=== PATIENT | female | born 1960 ===

== ENCOUNTER 2018-09-02 14:48 | Observation (INO) | payer OTHER ==
[2018-09-02 15:04] VITALS: BMI 49.8
[2018-09-02] MEDS ORDERED: Albuterol-Ipratrop 3 mg / 0.5 (3 ml) UD IH STA ×3 (15:26→16:48)
--- NOTE | 2018-09-02 15:35 | ED PDOC ---
Arrival/HPI - General Chief Complaint: Cough, Cold, Congestion Historian: Patient - History of Present Illness Narrative History of Present Illness (Text): 09/02/18 15:30 57 year old Jamaican-speaking female, whose past medical history includes diabetes, hypertension, and hypothyroidism, presents to the emergency department complaining of productive cough with phlegm, subjective fever, headache, and dizziness for the past couple of days. Patient also reports slight shortness of breath when walking. Patient denies any recent travel or taking any medication for cough. She denies any history of asthma or COPD. Patient denies any fever, chills, chest pain, nausea, vomiting, diarrhea, urinary symptoms, back pain, neck pain, or any other complaints. Time/Duration: Other (couple days) Symptom Onset: Gradual Symptom Course: Unchanged Activities at Onset: Light Context: Home Past Medical History - Provider Review Nursing Documentation Reviewed: Yes - Infectious Disease Hx of Infectious Diseases: None - Cardiac Hx Hypertension: Yes - Pulmonary Hx Bronchitis: Yes Hx Pneumonia: Yes - Endocrine/Metabolic Hx Diabetes Mellitus Type 2: Yes Hx Hypothyroidism: Yes - Psychiatric Hx Substance Use: No - Surgical History Other/Comment: L foot surgery. Stomach surgery x 3 - Anesthesia Hx Anesthesia: Yes Hx Anesthesia Reactions: No Hx Malignant Hyperthermia: No Family/Social History - Physician Review Nursing Documentation Reviewed: Yes Family/Social History: No Known Family HX Smoking Status: Never Smoked Hx Alcohol Use: No Hx Substance Use: No Allergies/Home Meds Allergies/Adverse Reactions: Allergies No Known Allergies Allergy (Verified 09/02/18 20:32) Home Medications: Home Meds Medication Instructions Recorded Confirmed Labetalol [Trandate] 1 tab PO TID 09/02/18 09/02/18 Levothyroxine [Synthroid] 1 tab PO DAILY 09/02/18 09/02/18 hydroCHLOROthiazide [Microzide] 1 tab PO DAILY 09/02/18 09/02/18 metFORMIN [glucOPHAGE] 1 tab PO BID 09/02/18 09/02/18 Review of Systems - Physician Review All systems were reviewed & negative as marked: Yes - Review of Systems Constitutional: Fevers. absent: Other (chills) Respiratory: SOB, Cough Cardiovascular: absent: Chest Pain Gastrointestinal: absent: Abdominal Pain, Diarrhea, Nausea, Vomiting Genitourinary Female: absent: Dysuria, Frequency, Hematuria Musculoskeletal: absent: Back Pain, Neck Pain Neurological: absent: Headache, Dizziness Physical Exam Vital Signs Reviewed: Yes Vital Signs Temp Pulse Resp BP Pulse Ox 09/02/18 15:23 95 09/02/18 15:09 97.6 F 91 H 18 135/94 H 88 L Temperature: Afebrile Blood Pressure: Hypertensive Pulse: Regular Respiratory Rate: Normal Appearance: Positive for: Well-Appearing, Non-Toxic, Comfortable Pain Distress: None Mental Status: Positive for: Alert and Oriented X 3 - Systems Exam Head: Present: Atraumatic, Normocephalic Pupils: Present: PERRL Extroacular Muscles: Present: EOMI Conjunctiva: Present: Normal Mouth: Present: Moist Mucous Membranes Neck: Present: Normal Range of Motion Respiratory/Chest: Present: Rhonchi (bilateral). No: Respiratory Distress, Accessory Muscle Use Cardiovascular: Present: Regular Rate and Rhythm, Normal S1, S2. No: Murmurs Abdomen: No: Tenderness, Distention, Peritoneal Signs Back: Present: Normal Inspection Upper Extremity: Present: Normal Inspection. No: Cyanosis, Edema Lower Extremity: Present: Normal Inspection. No: Edema Neurological: Present: GCS=15, CN II-XII Intact, Speech Normal Skin: Present: Warm, Dry, Normal Color. No: Rashes Psychiatric: Present: Alert, Oriented x 3, Normal Insight, Normal Concentration Medical Decision Making ED Course and Treatment: 09/02/18 15:30 Impression: 57 year old female presents complaining of productive cough with yellow phlegm, subjective fever, dizziness, headache for the past couple days. Patient also reports shortness of breath with exertion. Plan: -- Labs -- EKG -- Chest X-Ray -- Duoneb -- Blood Culture -- Influenza A B -- Reassess and disposition Prior Visits: Notes and results from previous visits were reviewed. Progress Notes: EKG shows Sinus at 87 BPM with normal axis and normal intervals. Interpreted by me. Chest X-ray Dictator : Eulogio Randhawa MD IMPRESSION: No active disease. Patient is influenza A positive. 09/02/18 18:[address] Newman who is aware and agrees with the plan. Accepts patient into hospitalist service. - Lab Interpretations I have reviewed the lab results: Yes - RAD Interpretation Radiology Orders: 09/02/18 15:26 CHEST PORTABLE [RAD] Stat Supervisor [employer]: Radiologist - Medication Orders Current Medication Orders: Discontinued Medications Albuterol/Ipratropium (Duoneb 3 Mg/0.5 Mg (3 Ml) Ud) 3 ml IH STAT STA Stop: 09/02/18 15:27 - Scribe Statement The provider has reviewed the documentation as recorded by the Deannaibe Simran Carter Provider Scribe Attestation: All medical record entries made by the Scribe were at my direction and personally dictated by me. I have reviewed the chart and agree that the record accurately reflects my personal performance of the history, physical exam, medical decision making, and the department course for this patient. I have also personally directed, reviewed, and agree with the discharge instructions and disposition. Disposition/Present on Arrival - Present on Arrival Any Indicators Present on Arrival: No History of DVT/PE: No History of Uncontrolled Diabetes: No Urinary Catheter: No History of Decub. Ulcer: No History Surgical Site Infection Following: None - Disposition Have Diagnosis and Disposition been Completed?: Yes Diagnosis: Bronchitis Disposition: HOME/ ROUTINE Disposition Time: 18:20 Condition: GOOD
--- NOTE | 2018-09-02 15:58 | RAD ---
Date of service: 09/02/2018 HISTORY: cough r/o infiltrate COMPARISON: No prior. FINDINGS: LUNGS: No active pulmonary disease. PLEURA: No significant pleural effusion identified, no pneumothorax apparent. CARDIOVASCULAR: No aortic atherosclerotic calcification present. Normal cardiac size. No pulmonary vascular congestion. OSSEOUS STRUCTURES: No significant abnormalities. VISUALIZED UPPER ABDOMEN: Normal. OTHER FINDINGS: None. IMPRESSION: No active disease.
[2018-09-02 16:27] LABS: BASO # 0.01 K/mm3 (0.0-2.0); BASO % 0.2 % (0.0-3.0); EOS % 0.2 % (1.5-5.0); HEMOGLOBIN 14.9 g/dL (12.0-16.0); LYMPH # 1.3 (1.2-3.4); LYMPH % 22.6 % (22.0-35.0); MEAN CELL VOLUME 78.8 fl (80.0-105.0); MEAN CORPUSCULAR HEMOGLOBIN 25.1 pg (25.0-35.0); MEAN CORPUSCULAR HGB CONC 31.8 g/dl (31.0-37.0); MEAN PLATELET VOLUME 10.7 fl (7.0-11.0); MONO # 0.8 (0.1-0.6); MONO % 13.8 % (1.0-6.0); RBC 5.94 10^6/uL (3.5-6.1); RED CELL DISTRIBUTION WIDTH 15.5 % (11.5-14.5); WHITE BLOOD COUNT 5.7 10^3/uL (4.5-11.0)
[2018-09-02 16:53] LABS: ALB/GLOB RATIO 1.3 (1.1-1.8); ALBUMIN 4.6 g/dL (3.0-4.8); ALT/SGPT 85 U/L (7-56); AST/SGOT 83 U/L (14-36); B-TYPE NATRIURETIC PEPTIDE 41.8 pg/mL (0-450); BLOOD UREA NITROGEN 34 mg/dL (7-21); CALCIUM 10.1 mg/dL (8.4-10.5); GFR NON-AFRICAN AMERICAN 42; TROPONIN I < 0.01 ng/mL
[2018-09-02] MEDS ORDERED: Insulin Regular 1 UNITS/0.01 ML ML IVP STA (16:58)
[2018-09-02] MEDS ORDERED: Sodium Chloride 0.9% 1,000 ML IV STA ×2 (16:58→18:42)
[2018-09-02 17:08] LABS: CK-MB 1.5 ng/mL (0.0-3.6)
[2018-09-02 17:11] LABS: T3 0.65 ng/mL (0.97-1.69)
[2018-09-02] MEDS ORDERED: Sodium Chloride 0.9% 1,000 ML IV ONE (18:38)
[2018-09-02 18:42] LABS: ARTERIAL BLOOD GAS HCO3 29.6 mmol/L (21-28); ARTERIAL BLOOD GAS O2 SAT 87.1 % (95-98); ARTERIAL BLOOD GAS PCO2 50 mm/Hg (35-45); ARTERIAL BLOOD GAS PH 7.38 (7.35-7.45); ARTERIAL BLOOD GAS TCO2 31.1 mmol.L (22-28)
--- NOTE | 2018-09-02 19:05 | CP.PCM.HP ---
<Eleno Duncan - Last Filed: 09/02/18 19:59> History of Present Illness - History of Present Illness History of Present Illness: PGY-1 Medicine H&P CC: Hyperglycemia and flu-like symptoms HPI: Patient is a 57 year old Burmese-speaking female with a past medical history of DM-2, HTN, and hypothyroidism presenting with generalized weakness, nausea, and fevers. Patient's 2 daughters were at bedside and translated. Patient states that she started having these symptoms about a week ago but decided to come to the ED today because of worsening symptoms. She admits to feeling nauseated but denies vomiting. Patient is also complaining of a productive cough that started last week. She describes the cough to be productive with yellow sputum. She also admits to having fevers and chills at home. Patient denies any recent travel or sick contacts. Patient was diagnosed with diabetes 2 months ago and was prescribed Metformin. She states that she has no been taking the Metformin regularly due to the side effects of nausea and upset stomach. She states that she had lost about 30 pounds ever since she started taking it. She admits to having shortness of breath especially when she is coughing. She further denies chest pain, abdominal pain, diarrhea, constipation, or urinary symptoms. In ED, glucose was 714. 12 point ROS reviewed and negative except mentioned in HPI. PMHx: DM-2, HTN, Hypothyroidism PSHx: Hernia surgery X 3 Allergies: NKDA Social Hx: Denies tobacco, alcohol, or drug use. Family Hx: Mother has HTN, maternal grandmother had HTN and heart disease. PMD: Carlos GARZA, [facility]: [facility] in [place] Present on Admission - Present on Admission Any Indicators Present on Admission: Yes History of DVT/PE: No History of Uncontrolled Diabetes: Yes Urinary Catheter: No Decubitus Ulcer Present: No Past Patient History - Infectious Disease Hx of Infectious Diseases: None - Past Social History Smoking Status: Never Smoked - CARDIAC Hx Hypertension: Yes - PULMONARY Hx Bronchitis: Yes Hx Pneumonia: Yes - ENDOCRINE/METABOLIC Hx Diabetes Mellitus Type 2: Yes Hx Hypothyroidism: Yes - PSYCHIATRIC Hx Substance Use: No - SURGICAL HISTORY Other/Comment: L foot surgery. Stomach surgery x 3 - ANESTHESIA Hx Anesthesia: Yes Hx Anesthesia Reactions: No Hx Malignant Hyperthermia: No Meds Allergies/Adverse Reactions: Allergies Allergy/AdvReac Type Severity Reaction Status Date / Time No Known Allergies Allergy Verified 09/02/18 20:32 Physical Exam - Constitutional Appears: No Acute Distress Additional comments: Appears uncomfortable and lethargic - Head Exam Head Exam: ATRAUMATIC, NORMAL INSPECTION - Eye Exam Eye Exam: EOMI, Normal appearance Pupil Exam: NORMAL ACCOMODATION, PERRL - ENT Exam ENT Exam: Mucous Membranes Dry - Neck Exam Neck exam: Negative for: Tenderness - Respiratory Exam Respiratory Exam: Rhonchi - Cardiovascular Exam Cardiovascular Exam: REGULAR RHYTHM, +S1, +S2. absent: Gallop, Rubs, Systolic Murmur - GI/Abdominal Exam GI & Abdominal Exam: Normal Bowel Sounds, Soft. absent: Distended, Firm, Guarding, Tenderness - Extremities Exam Extremities exam: Negative for: calf tenderness, pedal edema - Neurological Exam Neurological exam: Alert, CN II-XII Intact, Oriented x3 - Psychiatric Exam Psychiatric exam: Normal Affect, Normal Mood - Skin Skin Exam: Dry, Intact, Normal Color, Warm Results - Vital Signs Recent Vital Signs: Last Vital Signs Temp 97.6 F 09/02/18 15:09 Pulse 86 09/02/18 18:24 Resp 18 09/02/18 18:24 BP 150/66 09/02/18 18:24 Pulse Ox 95 09/02/18 18:24 - Labs Result Diagrams: 09/02/18 15:50 09/02/18 15:50 Labs: Laboratory Results - last 24 hr 09/02/18 09/02/18 09/02/18 15:50 15:50 15:50 WBC 5.7 RBC 5.94 Hgb 14.9 Hct 46.8 MCV 78.8 L MCH 25.1 MCHC 31.8 RDW 15.5 H Plt Count 160 MPV 10.7 Neut % (Auto) 63.2 Lymph % (Auto) 22.6 [place] % (Auto) 13.8 H Eos % (Auto) 0.2 L Baso % (Auto) 0.2 Lymph # (Auto) 1.3 [place] # (Auto) 0.8 H Eos # (Auto) 0.0 Baso # (Auto) 0.01 Absolute Neuts (auto) 3.63 pCO2 pO2 HCO3 ABG pH ABG Total CO2 ABG O2 Saturation ABG Base Excess ABG Potassium Glucose Lactate FiO2 Crit Value Called To Crit Value Called By Blood Gas Notified Time Sodium 130 L Potassium 4.2 Chloride 83 L Carbon Dioxide 35 H Anion Gap 17 BUN 34 H Creatinine 1.3 H Est GFR ( Amer) 51 Est GFR (Non-Af Amer) 42 Random Glucose 714 H* Calcium 10.1 Magnesium 2.1 Total Bilirubin 0.5 AST 83 H ALT 85 H Alkaline Phosphatase 115 Lactate Dehydrogenase 660 Total Creatine Kinase 262 H CK-MB (CK-2) 1.5 CK-MB (CK-2) % Cancelled Troponin I < 0.01 NT-Pro-B Natriuret Pep 41.8 Total Protein 8.3 Albumin 4.6 Globulin 3.6 Albumin/Globulin Ratio 1.3 Total T3 TSH 3rd Generation Arterial Blood Potassium Influenza Typ A,B (EIA) Pos for influenza a H 09/02/18 09/02/18 15:50 18:35 WBC RBC Hgb Hct MCV MCH MCHC RDW Plt Count MPV Neut % (Auto) Lymph % (Auto) [place] % (Auto) Eos % (Auto) Baso % (Auto) Lymph # (Auto) [place] # (Auto) Eos # (Auto) Baso # (Auto) Absolute Neuts (auto) pCO2 50 H pO2 48.0 L HCO3 29.6 H ABG pH 7.38 ABG Total CO2 31.1 H ABG O2 Saturation 87.1 L ABG Base Excess 3.4 H ABG Potassium 3.6 Glucose 599 H* Lactate 1.7 FiO2 21.0 Crit Value Called To Dr whaley Crit Value Called By Ct Blood Gas Notified Time 1841 Sodium 132.0 Potassium Chloride 91.0 L Carbon Dioxide Anion Gap BUN Creatinine Est GFR ( Amer) Est GFR (Non-Af Amer) Random Glucose Calcium Magnesium Total Bilirubin AST ALT Alkaline Phosphatase Lactate Dehydrogenase Total Creatine Kinase CK-MB (CK-2) CK-MB (CK-2) % Troponin I NT-Pro-B Natriuret Pep Total Protein Albumin Globulin Albumin/Globulin Ratio Total T3 0.65 L TSH 3rd Generation 5.91 H Arterial Blood Potassium 3.6 Influenza Typ A,B (EIA) Assessment & Plan - Assessment and Plan (Free Text) Assessment: Patient is a 57 year old Burmese-speaking female with a past medical history of DM-2, HTN, and hypothyroidism presenting with generalized weakness, nausea, and fevers. Glucose was 714 on admission. Plan: Hyperosmolar Hyperglycemic Syndrome - Admit patient to remote telemetry for regular accuchecks - Insulin Lispro High dose SC Q4H - Levemir 10 units SC HS - Endocrinology consulted, Dr. Panchal - NS @ 150 mls/hr - Got 2 X boluses in ED - Accuchecks Q2H - Zofran 4mg IV Q4 PRN - Hemoglobin A1c, Lipid panel: pending - Diabetic education referral Infuenza - Tamiflu 75mg PO BID for 5 days - Tylenol PRN for fevers - Blood, urine cultures: pending - Procalcitonin: pending Shortness of breath - Duonebs Q6 [place] and Q2 PRN - Acetylcysteine Q6 - CPAP HS Hypothyroidism - Continue home medication, Levothyroxine 25mg PO QD HTN - Hold home medications, HTZ and Labetolol Prophylaxis - DVT: Lovenox 40mg SC QD Case discussed with attending, Dr. Hannah Duncan, PGY-1 <Franky Young - Last Filed: 09/02/18 22:02> Results - Vital Signs Recent Vital Signs: Last Vital Signs Temp 97.6 F 09/02/18 15:09 Pulse 86 09/02/18 18:24 Resp 18 09/02/18 21:26 BP 150/66 09/02/18 18:24 Pulse Ox 95 09/02/18 18:24 - Labs Result Diagrams: 09/02/18 15:50 09/02/18 20:54 Labs: Laboratory Results - last 24 hr 09/02/18 09/02/18 09/02/18 15:50 15:50 15:50 WBC 5.7 RBC 5.94 Hgb 14.9 Hct 46.8 MCV 78.8 L MCH 25.1 MCHC 31.8 RDW 15.5 H Plt Count 160 MPV 10.7 Neut % (Auto) 63.2 Lymph % (Auto) 22.6 [place] % (Auto) 13.8 H Eos % (Auto) 0.2 L Baso % (Auto) 0.2 Lymph # (Auto) 1.3 [place] # (Auto) 0.8 H Eos # (Auto) 0.0 Baso # (Auto) 0.01 Absolute Neuts (auto) 3.63 pCO2 pO2 HCO3 ABG pH ABG Total CO2 ABG O2 Saturation ABG Base Excess ABG Potassium Glucose Lactate FiO2 Crit Value Called To Crit Value Called By Blood Gas Notified Time Sodium 130 L Potassium 4.2 Chloride 83 L Carbon Dioxide 35 H Anion Gap 17 BUN 34 H Creatinine 1.3 H Est GFR ( Amer) 51 Est GFR (Non-Af Amer) 42 Random Glucose 714 H* Calcium 10.1 Magnesium 2.1 Total Bilirubin 0.5 AST 83 H ALT 85 H Alkaline Phosphatase 115 Lactate Dehydrogenase 660 Total Creatine Kinase 262 H CK-MB (CK-2) 1.5 CK-MB (CK-2) % Cancelled Troponin I < 0.01 NT-Pro-B Natriuret Pep 41.8 Total Protein 8.3 Albumin 4.6 Globulin 3.6 Albumin/Globulin Ratio 1.3 Total T3 TSH 3rd Generation Arterial Blood Potassium Urine Color Urine Appearance Urine pH Ur Specific [place] Urine Protein Urine Glucose (UA) Urine Ketones Urine Blood Urine Nitrate Urine Bilirubin Urine Urobilinogen Ur Leukocyte Esterase Influenza Typ A,B (EIA) Pos for influenza a H 09/02/18 09/02/18 09/02/18 15:50 18:35 20:54 WBC RBC Hgb Hct MCV MCH MCHC RDW Plt Count MPV Neut % (Auto) Lymph % (Auto) [place] % (Auto) Eos % (Auto) Baso % (Auto) Lymph # (Auto) [place] # (Auto) Eos # (Auto) Baso # (Auto) Absolute Neuts (auto) pCO2 50 H pO2 48.0 L HCO3 29.6 H ABG pH 7.38 ABG Total CO2 31.1 H ABG O2 Saturation 87.1 L ABG Base Excess 3.4 H ABG Potassium 3.6 Glucose 599 H* Lactate 1.7 FiO2 21.0 Crit Value Called To Dr whaley Crit Value Called By Ct Blood Gas Notified Time 1841 Sodium 132.0 134 Potassium 4.7 Chloride 91.0 L 90 L Carbon Dioxide 31 Anion Gap 17 BUN 32 H Creatinine 1.1 Est GFR ( Amer) > 60 Est GFR (Non-Af Amer) 51 Random Glucose 557 H* D Calcium 9.5 Magnesium Total Bilirubin AST ALT Alkaline Phosphatase Lactate Dehydrogenase Total Creatine Kinase CK-MB (CK-2) CK-MB (CK-2) % Troponin I NT-Pro-B Natriuret Pep Total Protein Albumin Globulin Albumin/Globulin Ratio Total T3 0.65 L TSH 3rd Generation 5.91 H Arterial Blood Potassium 3.6 Urine Color Urine Appearance Urine pH Ur Specific [place] Urine Protein Urine Glucose (UA) Urine Ketones Urine Blood Urine Nitrate Urine Bilirubin Urine Urobilinogen Ur Leukocyte Esterase Influenza Typ A,B (EIA) 09/02/18 21:29 WBC RBC Hgb Hct MCV MCH MCHC RDW Plt Count MPV Neut % (Auto) Lymph % (Auto) [place] % (Auto) Eos % (Auto) Baso % (Auto) Lymph # (Auto) [place] # (Auto) Eos # (Auto) Baso # (Auto) Absolute Neuts (auto) pCO2 pO2 HCO3 ABG pH ABG Total CO2 ABG O2 Saturation ABG Base Excess ABG Potassium Glucose Lactate FiO2 Crit Value Called To Crit Value Called By Blood Gas Notified Time Sodium Potassium Chloride Carbon Dioxide Anion Gap BUN Creatinine Est GFR ( Amer) Est GFR (Non-Af Amer) Random Glucose Calcium Magnesium Total Bilirubin AST ALT Alkaline Phosphatase Lactate Dehydrogenase Total Creatine Kinase CK-MB (CK-2) CK-MB (CK-2) % Troponin I NT-Pro-B Natriuret Pep Total Protein Albumin Globulin Albumin/Globulin Ratio Total T3 TSH 3rd Generation Arterial Blood Potassium Urine Color Yellow Urine Appearance Clear Urine pH 6.0 Ur Specific [place] 1.015 Urine Protein Negative Urine Glucose (UA) >=1000 Urine Ketones 15 H Urine Blood Negative Urine Nitrate Negative Urine Bilirubin Negative Urine Urobilinogen 0.2 Ur Leukocyte Esterase Negative Influenza Typ A,B (EIA) Attending/Attestation - Attestation I have personally seen and examined this patient.: Yes I have fully participated in the care of the patient.: Yes I have reviewed all pertinent clinical information: Yes Notes (Text): 09/02/18 22:0Seen and examined. Disciussed with resident. A&P formulated with resident as above.
[2018-09-02] MEDS ORDERED: Albuterol-Ipratrop 3 mg / 0.5 (3 ml) UD IH PRN (19:17)
[2018-09-02] MEDS ORDERED: Dextrose 50% SYRINGE Inj (50 ml) IV PRN (19:22)
[2018-09-02] MEDS ORDERED: Insulin Lispro 1 UNITS/0.01 ML SC SCH (19:30)
[2018-09-02] MEDS ORDERED: Insulin Lispro (HUMAlog) HIGH Coverage SC SCH ×3 (19:30→22:14)
[2018-09-02] MEDS ORDERED: Insulin Lispro 1 UNITS/0.01 ML ONE (20:12)
[2018-09-02] MEDS: Sodium Chloride 0.9% 1,000 ML IV SCH (20:15)
[2018-09-02] MEDS: Albuterol-Ipratrop 3 mg / 0.5 (3 ml) UD IH SCH (20:17)
[2018-09-02 21:10] LABS: BLOOD UREA NITROGEN 32 mg/dL (7-21); CALCIUM 9.5 mg/dL (8.4-10.5); GFR NON-AFRICAN AMERICAN 51
[2018-09-02] MEDS ORDERED: Pneumococcal 23-Valent Vaccine IM ONE (21:41)
[2018-09-02] MEDS ORDERED: Influenza Vaccine 60 mcg/0.5 mL SYR (4YR UP) IM ONE (21:41)
[2018-09-02 21:43] LABS: URINE BILIRUBIN NEGATIVE (NEGATIVE); URINE BLOOD NEGATIVE (NEGATIVE); URINE GLUCOSE (UA) >=1000 mg/dL (NEGATIVE); URINE LEUKOCYTE ESTERASE NEGATIVE Leu/uL (NEGATIVE); URINE PROTEIN NEGATIVE mg/dL (<30 mg/dL); URINE UROBILINOGEN 0.2 E.U./dL (<1 E.U./dL)
[2018-09-02 21:46] LABS: URINE APPEARANCE CLEAR (CLEAR); URINE COLOR YELLOW (YELLOW)
[2018-09-02] MEDS ORDERED: Insulin Detemir 100 units/ml Vial (Levemir) SC SCH (22:00)
--- NOTE | 2018-09-02 22:09 | CARD ---
APPROVED REPORT Date of service: 09/02/2018 EKG Measurement Heart [id number] <Conclusion> Normal sinus rhythm Normal ECG
[2018-09-03] LABS: BLOOD UREA NITROGEN 31 mg/dL (7-21); GFR NON-AFRICAN AMERICAN 51
[2018-09-03 00:01] LABS: CALCIUM 9.2 mg/dL (8.4-10.5)
[2018-09-03] MEDS ORDERED: Insulin Regular 1 UNITS/0.01 ML ML SC STA ×2 (00:09→02:26)
--- NOTE | 2018-09-03 00:17 | CP.PCM.PN ---
<Angel Luis Johnson - Last Filed: 09/03/18 00:16> Subjective - Date & Time of Evaluation Date of Evaluation: 09/03/18 Time of Evaluation: 00:16 - Subjective Subjective: PGY1 House Doctor: Patient with Glucose of 475. Ordered 10 units of regular insulin. continue to monitor. Objective - Vital Signs/Intake and Output Vital Signs (last 24 hours): Temp Pulse Resp BP Pulse Ox 97.6 F 89 16 148/89 98 09/02/18 15:09 09/02/18 22:35 09/02/18 22:35 09/02/18 22:35 09/02/18 22:35 - Medications Medications: Current Medications Acetaminophen (Tylenol 325mg Tab) 650 mg PO Q6H PRN PRN Reason: Fever >100.4 F Acetylcysteine (Acetylcysteine 20%) 4 ml IH [id number] [place] Albuterol/Ipratropium (Duoneb 3 Mg/0.5 Mg (3 Ml) Ud) 3 ml IH [id number] [facility] Last Admin: 09/02/18 20:17 Dose: 3 ml Albuterol/Ipratropium (Duoneb 3 Mg/0.5 Mg (3 Ml) Ud) 3 ml IH Q2H PRN PRN Reason: Shortness of Breath Dextrose (Dextrose 50% Inj) 0 ml IV STAT PRN; Protocol PRN Reason: Hypoglycemia Protocol Enoxaparin Sodium (Lovenox) 40 mg SC DAILY [facility]; Protocol Sodium Chloride (Sodium Chloride 0.9%) 1,000 mls @ 150 mls/hr IV .Q6H40M [facility] Last Admin: 09/02/18 20:15 Dose: 150 mls/hr Dextrose (Dextrose 5% In Water 1000 Ml) 1,000 mls @ 0 mls/hr IV .Q0M PRN; Protocol PRN Reason: Hypoglycemia Protocol Insulin Detemir (Levemir) 24 unit SC HS [facility] Insulin Human Lispro (Humalog) 12 units SC AC [place] Insulin Human Lispro (Humalog Low) 0 units SC ACHS [facility]; Protocol Levothyroxine Sodium (Synthroid) 75 mcg PO 0600 [facility] Ondansetron HCl (Zofran Inj) 4 mg IVP Q4H PRN PRN Reason: Nausea/Vomiting Oseltamivir Phosphate (Tamiflu Cap) 75 mg PO BID [facility]; Protocol Stop: 09/07/18 19:31 Last Admin: 09/02/18 20:15 Dose: 75 mg Pantoprazole Sodium (Protonix Ec Tab) 40 mg PO 0600 [facility] - Labs Labs: 09/02/18 15:50 09/02/18 23:30 <Franky Young - Last Filed: 09/03/18 06:48> Objective - Vital Signs/Intake and Output Vital Signs (last 24 hours): Temp Pulse Resp BP Pulse Ox 97.6 F 81 16 148/89 98 09/02/18 15:09 09/03/18 02:00 09/02/18 22:35 09/02/18 22:35 09/02/18 22:35 - Medications Medications: Current Medications Acetaminophen (Tylenol 325mg Tab) 650 mg PO Q6H PRN PRN Reason: Fever >100.4 F Acetylcysteine (Acetylcysteine 20%) 4 ml IH [id number] [facility] Last Admin: 09/03/18 01:28 Dose: Not Given Albuterol/Ipratropium (Duoneb 3 Mg/0.5 Mg (3 Ml) Ud) 3 ml IH [id number] [facility] Last Admin: 09/03/18 01:25 Dose: 3 ml Albuterol/Ipratropium (Duoneb 3 Mg/0.5 Mg (3 Ml) Ud) 3 ml IH Q2H PRN PRN Reason: Shortness of Breath Dextrose (Dextrose 50% Inj) 0 ml IV STAT PRN; Protocol PRN Reason: Hypoglycemia Protocol Enoxaparin Sodium (Lovenox) 40 mg SC DAILY [facility]; Protocol Sodium Chloride (Sodium Chloride 0.9%) 1,000 mls @ 150 mls/hr IV .Q6H40M [facility] Last Admin: 09/03/18 05:37 Dose: 150 mls/hr Dextrose (Dextrose 5% In Water 1000 Ml) 1,000 mls @ 0 mls/hr IV .Q0M PRN; Protocol PRN Reason: Hypoglycemia Protocol Insulin Detemir (Levemir) 24 unit SC HS [facility] Insulin Human Lispro (Humalog) 12 units SC AC [facility] Insulin Human Lispro (Humalog Low) 0 units SC ACHS [facility]; Protocol Levothyroxine Sodium (Synthroid) 75 mcg PO 0600 [facility] Last Admin: 03/05/19 05:37 Dose: 75 mcg Ondansetron HCl (Zofran Inj) 4 mg IVP Q4H PRN PRN Reason: Nausea/Vomiting Oseltamivir Phosphate (Tamiflu Cap) 75 mg PO BID [facility]; Protocol Stop: 09/07/18 19:31 Last Admin: 09/02/18 20:15 Dose: 75 mg Pantoprazole Sodium (Protonix Ec Tab) 40 mg PO 0600 [facility] Last Admin: 09/03/18 05:37 Dose: 40 mg - Labs Labs: 09/03/18 03:30 09/03/18 03:30 Attending/Attestation - Attestation I have personally seen and examined this patient.: Yes I have fully participated in the care of the patient.: Yes I have reviewed all pertinent clinical information, including history, physical exam and plan: Yes
--- NOTE | 2018-09-03 00:41 | CON ---
DATE: 09/03/2018 ENDOCRINOLOGY CONSULT Room 378 HISTORY OF PRESENT ILLNESS: This is a 57-year-old obese female with known history of type 2 diabetes, previously on metformin therapy, now admitted with acute influenza and is now being referred for diabetic evaluation because of marked hyperglycemic accelerations as noted today, especially after the stat dose of IV steroid therapy as given. PAST MEDICAL HISTORY: History of type 2 diabetes diagnosed about 2 months ago and was given metformin therapy which she poorly tolerated because of the adverse GI related symptoms of dyspepsia and abdominal pain, history of hypertension and dyslipidemia, and history of hypothyroidism, on levothyroxine given as 25 mcg daily. FAMILY HISTORY: Positive for diabetes and hypertension. SOCIAL HISTORY: The patient has a supportive family. No known substance use. REVIEW OF SYSTEMS: As mentioned above. Admits to generalized body weakness with bifrontal headaches and visual blurring, worse in the last few days prior to admission. Also admits to hypersomnolence and generalized body weakness with suboptimal energy level. Moreover, admits to dizziness and lightheadedness, worse in the last few days prior to admission. No chest pains but admits to productive cough with yellow phlegm production and occasional pleuritic chest pains. Also admits to febrile condition over the past week or so prior to admission with episodic rigors and chills as noted. Her oral intake has been variable with nausea, dyspepsia, and vague upper abdominal pains. Also admits to marked polyuria, nocturia, and polydipsia. PAST SURGICAL HISTORY: She had some kind of stomach surgery, the exact nature and procedure are yet to be clarified at this time. She also had some hernia surgery in the past and a previous left foot surgery. PHYSICAL EXAMINATION: GENERAL: This is an obese female in no apparent distress. VITAL SIGNS: Blood pressure of 150/90, pulse of 100 beats per minute and regular, temperature 99, respirations 20, height is 5 feet 7 inches, weight is 318 pounds. HEENT: Head normocephalic. Eyes anicteric with pink conjunctivae. Funduscopy not possible at this time. Ears, nose, and throat otherwise normal. NECK: Supple. Thyroid gland is firm and nontender with no overt thyroid nodules as noted. HEART: Hyperdynamic precordium. S1, S2 are rapid and regular. LUNGS: Show scattered rhonchi. ABDOMEN: Obese, soft, with positive bowel sounds. EXTREMITIES: No peripheral edema. Pulses are +2 bilaterally. LABORATORY DATA: Her chemistry shows a BUN of 32, sodium 134, potassium 4.7, chloride 90, CO2 of 31, glucose 557, and creatinine 1.1. Her glucose levels have ranged from 431 to 462 mg/dL. Her TSH is 5.91. ASSESSMENT: This is a 57-year-old morbidly obese female with uncontrolled type 2 insulin-requiring diabetes, presenting with acute influenza syndrome and now being referred for diabetic evaluation and management. She has received a stat dose of IV steroid therapy which could also contribute to the increased insulin resistance and further impaired glucose tolerance thereof. Moreover, she has underlying morbid obesity which also can contribute to the increased insulin resistance thereof. She also has subclinical hypothyroidism related to a subtherapeutic regimen of her levothyroxine therapy and most likely has autoimmune thyroiditis as noted. PLAN OF MANAGEMENT: We will modify her current insulin regimen and switch over to a basal and bolus insulin drug combination to optimize metabolic control. We will add Humalog given as 12 units t.i.d. before meals to start tomorrow morning as ordered. We will modify the coverage scale to obviate hypoglycemia and detailed orders have been given. We will also titrate to a higher dosing her basal insulin to Levemir given as 24 units subcu at bedtime daily as ordered. We will obtain serial chemistries and supplement accordingly as needed. We will obtain also a hemoglobin A1c to confirm her prior glycemic control and a more comprehensive thyroid hormonal profile will be ordered for tomorrow. We will continue the IV hydration to replenish the lost fluids and electrolytes from the increased osmotic diuresis thereof. We will initiate diabetic education and dietary instructions to include weight loss efforts and healthier food choices thereof. We will obtain serial chemistries and supplement accordingly as needed. We will follow. Angelia Panchal MD
[2018-09-03] MEDS: Acetylcysteine 20% Inhal Soln (4ml) IH SCH ×4 (01:25→14:00)
[2018-09-03] MEDS: Albuterol-Ipratrop 3 mg / 0.5 (3 ml) UD IH SCH ×3 (01:25→14:00)
[2018-09-03 04:25] LABS: BASO # 0.01 K/mm3 (0.0-2.0); BASO % 0.2 % (0.0-3.0); HEMOGLOBIN 13.7 g/dL (12.0-16.0); LYMPH # 0.9 (1.2-3.4); MEAN CELL VOLUME 77.7 fl (80.0-105.0); MEAN CORPUSCULAR HGB CONC 32.2 g/dl (31.0-37.0); MEAN PLATELET VOLUME 11.1 fl (7.0-11.0); MONO # 0.3 (0.1-0.6); MONO % 4.9 % (1.0-6.0); RBC 5.48 10^6/uL (3.5-6.1); RED CELL DISTRIBUTION WIDTH 15.2 % (11.5-14.5); WHITE BLOOD COUNT 6.1 10^3/uL (4.5-11.0)
[2018-09-03 04:28] LABS: BLOOD UREA NITROGEN 30 mg/dL (7-21); CALCIUM 9.1 mg/dL (8.4-10.5); GFR NON-AFRICAN AMERICAN > 60
[2018-09-03] MEDS: Sodium Chloride 0.9% 1,000 ML IV SCH (05:37)
[2018-09-03 05:46] LABS: FREE T4 1.05 ng/dL (0.78-2.19)
[2018-09-03] MEDS ORDERED: Levothyroxine 75 MCG TAB PO SCH (06:00)
[2018-09-03] MEDS ORDERED: Pantoprazole 40 mg EC Tab PO SCH (06:00)
[2018-09-03] MEDS ORDERED: Sodium Chloride 0.9% 1,000 ML IV STA (06:56)
[2018-09-03 07:14] LABS: ALB/GLOB RATIO 1.2 (1.1-1.8); ALBUMIN 4.3 g/dL (3.0-4.8); ALT/SGPT 65 U/L (7-56); AST/SGOT 54 U/L (14-36); BLOOD UREA NITROGEN 28 mg/dL (7-21); CALCIUM 9.4 mg/dL (8.4-10.5); GFR NON-AFRICAN AMERICAN > 60; HDL CHOLESTEROL 34 mg/dL (29-60)
[2018-09-03 07:15] LABS: LDL CHOLESTEROL 121 mg/dL (0-129)
--- NOTE | 2018-09-03 07:16 | CP.PCM.PN ---
Subjective - Date & Time of Evaluation Date of Evaluation: 09/03/18 Time of Evaluation: 07:40 - Subjective Subjective: Endocrine Service Progress Note for Dr. Abdulkadir Lee DO, IM PGY-3 Patient seen and examined at bedside. Reports still feeling thirsty and tired, and reporting symptoms of diffuse chest discomfort, which she usually associates with her blood pressure being elevated. Reports that she had requested her BP medication, but had not yet received it, thought that this was the cause of her symptoms; explained that influenza can also cause diffuse body aches and that her pressure isn't currently very elevated. Blood glucose levels remain elevated but are trending down (came in with BG > 700, was 326 on fingerstick BG done during interview/exam today). Patient reports that has been on Metformin for 2 months, during which she sto pped it for a week due to GI distress, but has been taking it at least daily for the last 2 weeks. Also reports compliance with Synthroid and BP meds (Labetalol and HCTZ). Objective - Vital Signs/Intake and Output Vital Signs (last 24 hours): Temp Pulse Resp BP Pulse Ox 97.6 F 81 16 148/89 98 09/02/18 15:09 09/03/18 02:00 09/02/18 22:35 09/02/18 22:35 09/02/18 22:35 - Medications Medications: Current Medications Acetaminophen (Tylenol 325mg Tab) 650 mg PO Q6H PRN PRN Reason: Fever >100.4 F Acetylcysteine (Acetylcysteine 20%) 4 ml IH [id number] [facility] Last Admin: 09/03/18 01:28 Dose: Not Given Albuterol/Ipratropium (Duoneb 3 Mg/0.5 Mg (3 Ml) Ud) 3 ml IH [id number] [facility] Last Admin: 09/03/18 01:25 Dose: 3 ml Albuterol/Ipratropium (Duoneb 3 Mg/0.5 Mg (3 Ml) Ud) 3 ml IH Q2H PRN PRN Reason: Shortness of Breath Dextrose (Dextrose 50% Inj) 0 ml IV STAT PRN; Protocol PRN Reason: Hypoglycemia Protocol Enoxaparin Sodium (Lovenox) 40 mg SC DAILY [facility]; Protocol Sodium Chloride (Sodium Chloride 0.9%) 1,000 mls @ 150 mls/hr IV .Q6H40M [facility] Last Admin: 09/03/18 05:37 Dose: 150 mls/hr Dextrose (Dextrose 5% In Water 1000 Ml) 1,000 mls @ 0 mls/hr IV .Q0M PRN; Protocol PRN Reason: Hypoglycemia Protocol Sodium Chloride (Sodium Chloride 0.9%) 1,000 mls @ 999 mls/hr IV .Q1H1M [facility] Stop: 09/03/18 07:56 Insulin Detemir (Levemir) 24 unit SC HS [facility] Insulin Human Lispro (Humalog) 12 units SC AC [facility] Insulin Human Lispro (Humalog Low) 0 units SC ACHS [facility]; Protocol Levothyroxine Sodium (Synthroid) 75 mcg PO 0600 [facility] Last Admin: 09/03/18 05:37 Dose: 75 mcg Ondansetron HCl (Zofran Inj) 4 mg IVP Q4H PRN PRN Reason: Nausea/Vomiting Oseltamivir Phosphate (Tamiflu Cap) 75 mg PO BID [facility]; Protocol Stop: 09/07/18 19:31 Last Admin: 09/02/18 20:15 Dose: 75 mg Pantoprazole Sodium (Protonix Ec Tab) 40 mg PO 0600 [facility] Last Admin: 09/03/18 05:37 Dose: 40 mg - Labs Labs: 09/03/18 03:30 09/03/18 06:20 - Constitutional Appears: Non-toxic, No Acute Distress - Head Exam Head Exam: ATRAUMATIC, NORMAL INSPECTION, NORMOCEPHALIC - Eye Exam Eye Exam: Normal appearance. absent: Conjunctival injection, Scleral icterus - ENT Exam ENT Exam: Mucous Membranes Moist - Neck Exam Neck Exam: Lymphadenopathy. absent: Tenderness, Thyromegaly - Respiratory Exam Respiratory Exam: Decreased Breath Sounds (moderately decreased breath sounds in all ponce), NORMAL BREATHING PATTERN. absent: Accessory Muscle Use, Chest Wall Tenderness, Rales, Rhonchi, Wheezes, Respiratory Distress - Cardiovascular Exam Cardiovascular Exam: REGULAR RHYTHM, RRR, +S1, +S2. absent: Bradycardia, Tachycardia, Irregular Rhythm, JVD, +S4 - GI/Abdominal Exam GI & Abdominal Exam: Soft, Normal Bowel Sounds. absent: Distended (morbidly obese but not distended), Firm, Rigid, Tenderness - Extremities Exam Extremities Exam: Normal Inspection. absent: Joint Swelling, Tenderness - Neurological Exam Additional comments: awake and alert, moving all extremities spontaneously, following all commands appropriately - Psychiatric Exam Psychiatric exam: Normal Affect, Normal Mood - Skin Skin Exam: Dry, Intact, Normal Color, Warm Assessment and Plan - Assessment and Plan (Free Text) Assessment: This is a 57 yo F with PMH of HTN, Hypothyroidism (likely 2/2 autoimmune thyroiditis), and recently diagnosed DM2 on metformin who presented for malaise, nausea, and fevers. She was found to have an elevated BG > 700s and was Influenza A positive. Endocrine was consulted for HHS. Plan: 1) Hyperglycemia Uncontrolled DM2 vs HHS, elevated 2/2 infection? 2) Influenza A positive 3) HTN 4) Hypothyroidism 5) Elevated TSH: resolved -mostly likely body aches and malaise 2/2 HHS +/- Influenza A -BG remains elevated, but trending down, was > 700 on arrival but now 326 Not DKA, no acidosis, no anion gap -Continue current regimen: Levemir 24u HS, Lispro 12u AC, Lispro low ACHS -Continue IVF, recommend 3rd liter bolus NS given body habitus, elevated BUN, likely still volume depleted overall -TSH was elevated on initial labs, but improved from 5.91 to 0.78, Free T4 and total T4 wnl Chemically euthyroid on current synthroid regimen, more likely initial TSH was abnormality 2/2 presenting illness Continue current synthroid dose Patient seen and examined as above, will discuss with attending, Dr. Panchal. Further recs as per attending.
[2018-09-03] MEDS ORDERED: Levothyroxine 25 MCG TAB PO SCH (07:30)
[2018-09-03] MEDS ORDERED: Insulin Lispro (humaLOG) LOW Coverage SC SCH (07:30)
[2018-09-03] MEDS: Insulin Lispro (humaLOG) LOW Coverage SC SCH ×3 (08:10→17:10)
[2018-09-03] MEDS: Insulin Lispro 1 UNITS/0.01 ML SC SCH ×2 (08:15→12:43)
[2018-09-03 08:35] VITALS: RESP 20
[2018-09-03] MEDS ORDERED: Enoxaparin 40 mg Syringe SC SCH (10:00)
--- NOTE | 2018-09-03 13:12 | CP.PCM.PN ---
<Dao Kaur - Last Filed: 09/03/18 13:33> Subjective - Date & Time of Evaluation Date of Evaluation: 09/03/18 Time of Evaluation: 08:00 - Subjective Subjective: Medicine Progress Note for Dr. Newman 57F seen and evaluated at bedside this morning. No acute events overnight. No complaints this morning except continued decreased appetite and congestion secondary to the flu. Patient is passing gas, having bowel movements, and v oiding without difficulty. Denies f/c, n/v/d, SOB, CP, or urinary symptoms. Objective - Vital Signs/Intake and Output Vital Signs (last 24 hours): Temp Pulse Resp BP Pulse Ox 97.5 F L 75 20 142/87 94 L 09/03/18 08:35 09/03/18 10:00 09/03/18 08:35 09/03/18 08:35 09/03/18 08:35 - Medications Medications: Current Medications Acetaminophen (Tylenol 325mg Tab) 650 mg PO Q6H PRN PRN Reason: Fever >100.4 F Acetylcysteine (Acetylcysteine 20%) 4 ml IH [id number] [facility] Last Admin: 09/03/18 08:06 Dose: 4 ml Albuterol/Ipratropium (Duoneb 3 Mg/0.5 Mg (3 Ml) Ud) 3 ml IH [id number] [facility] Last Admin: 09/03/18 08:06 Dose: 3 ml Albuterol/Ipratropium (Duoneb 3 Mg/0.5 Mg (3 Ml) Ud) 3 ml IH Q2H PRN PRN Reason: Shortness of Breath Dextrose (Dextrose 50% Inj) 0 ml IV STAT PRN; Protocol PRN Reason: Hypoglycemia Protocol Enoxaparin Sodium (Lovenox) 40 mg SC DAILY [facility]; Protocol Last Admin: 09/03/18 09:32 Dose: 40 mg Sodium Chloride (Sodium Chloride 0.9%) 1,000 mls @ 150 mls/hr IV .Q6H40M [facility] Last Admin: 09/03/18 05:37 Dose: 150 mls/hr Dextrose (Dextrose 5% In Water 1000 Ml) 1,000 mls @ 0 mls/hr IV .Q0M PRN; Protocol PRN Reason: Hypoglycemia Protocol Insulin Detemir (Levemir) 24 unit SC [facility] Insulin Human Lispro (Humalog) 12 units SC AC [facility] Last Admin: 09/03/18 12:43 Dose: 12 units Insulin Human Lispro (Humalog Low) 0 units SC ACHS [facility]; Protocol Last Admin: 09/03/18 11:46 Dose: Not Given Levothyroxine Sodium (Synthroid) 75 mcg PO 0600 [facility] Last Admin: 09/03/18 05:37 Dose: 75 mcg Ondansetron HCl (Zofran Inj) 4 mg IVP Q4H PRN PRN Reason: Nausea/Vomiting Oseltamivir Phosphate (Tamiflu Cap) 75 mg PO BID [facility]; Protocol Stop: 09/07/18 19:31 Last Admin: 09/03/18 09:33 Dose: 75 mg Pantoprazole Sodium (Protonix Ec Tab) 40 mg PO 0600 [facility] Last Admin: 09/03/18 05:37 Dose: 40 mg - Labs Labs: 09/03/18 03:30 09/03/18 06:20 - Constitutional Appears: Well, Non-toxic, No Acute Distress - Head Exam Head Exam: ATRAUMATIC, NORMAL INSPECTION, NORMOCEPHALIC - Eye Exam Eye Exam: EOMI - ENT Exam ENT Exam: Mucous Membranes Dry - Respiratory Exam Respiratory Exam: NORMAL BREATHING PATTERN. absent: Accessory Muscle Use, Rhonchi, Wheezes, Respiratory Distress - Cardiovascular Exam Cardiovascular Exam: REGULAR RHYTHM. absent: Tachycardia - GI/Abdominal Exam GI & Abdominal Exam: Soft, Normal Bowel Sounds. absent: Tenderness - Neurological Exam Neurological Exam: Alert, Awake, Oriented x3 - Psychiatric Exam Psychiatric exam: Normal Affect, Normal Mood - Skin Skin Exam: Dry, Intact, Normal Color, Warm Assessment and Plan - Assessment and Plan (Free Text) Assessment: 57F chilean-speaking only, PMH of recently diagnosed DM2, HTN, and hypothyroidism, admitted for elevated blood glucose levels likely 2/2 HHS. Patient also positive for influenza. Plan: Hyperosmolar Hyperglycemic State - Blood glucose levels downtrending, will continue to monitor - Diabetic education including insulin administration and glucometer usage - Resume carb consistent diet, 1600kcal maximum - Pending A1c - Continue Insulin regimen per Endocrinology - Received total of 3L NS bolus - Currently on NS@150, can discontinue if patient tolerating diet - Accuchecks Q2H Influenza - Continue Tamiflu 75mg BID for 5 days (currently day 2) - Zofran PRN - Continue droplet precautions Shortness of Breath - Duonebs PRN - Acetylcysteine - CPAP HS Hypothyroidism - Continue home medication of Levothyroxine 75mg QD Hx of HTN - Continue home medications: HCTZ 50mg QD and Labetolol 100mg TID w/ holding parameters - Continue to monitor PPX GI: Protonix 40mg QD DVT: Lovenox 40mg QD Patient plan discussed with Dr. Trent Kaur PGY-1 <Kelvin Newman - Last Filed: 09/04/18 14:34> Objective - Vital Signs/Intake and Output Vital Signs (last 24 hours): Temp Pulse Resp BP Pulse Ox 97.9 F 70 20 152/93 H 95 09/03/18 18:00 09/03/18 18:00 09/03/18 18:00 09/03/18 18:00 09/03/18 18:00 - Labs Labs: 09/03/18 03:30 09/03/18 06:20 Attending/Attestation - Attestation I have personally seen and examined this patient.: Yes I have fully participated in the care of the patient.: Yes I have reviewed all pertinent clinical information, including history, physical exam and plan: Yes
--- NOTE | 2018-09-03 16:29 | CP.PCM.DIS ---
<Dao Kaur - Last Filed: 09/03/18 16:29> Provider - Provider Date of Admission: 09/02/18 18:45 Attending physician: Kelvin Newman MD Primary care physician: Dr. Brown Consults: 09/02/18 19:02 Diabetic Education Referral Routine Comment: Physician Instructions: Reason For Exam: Hyperglycemia, diagnosed w/ DM 2 months ago 09/02/18 19:14 Endocrinology Consult Routine Comment: Consulting Provider: Angelia Panchal Consulting Physician: Angelia Panchal Reason for Consult: HHS, new diabetic 09/02/18 21:41 Diabetic Education Referral Routine Comment: DIABETIC TEACHING. NEWLY DIAANOSED. Physician Instructions: Reason For Exam: EVALUATION Inpatient CLIENT CARE SPECIALIST Core Measures Referral Routine Comment: INFLUENZA A, Physician Instructions: Reason For Exam: EVALUATION Transition In Care/Readmission Reduction Routine Comment: Physician Instructions: Reason For Exam: EVALUATION 09/03/18 11:03 Diabetic Education Referral Routine Comment: Physician Instructions: Reason For Exam: insulin naive and glucose checks Time Spent in preparation of Discharge (in minutes): 60 Hospital Course - Lab Results Lab Results: Most Recent Lab Values WBC 6.1 10^3/uL (4.5-11.0) 09/03/18 03:30 RBC 5.48 10^6/uL (3.5-6.1) 09/03/18 03:30 Hgb 13.7 g/dL (12.0-16.0) 09/03/18 03:30 Hct 42.6 % (36.0-48.0) 09/03/18 03:30 MCV 77.7 fl (80.0-105.0) L 09/03/18 03:30 MCH 25.0 pg (25.0-35.0) 09/03/18 03:30 MCHC 32.2 g/dl (31.0-37.0) 09/03/18 03:30 RDW 15.2 % (11.5-14.5) H 09/03/18 03:30 Plt Count 167 10^3/uL (120.0-450.0) 09/03/18 03:30 MPV 11.1 fl (7.0-11.0) H 09/03/18 03:30 Neut % (Auto) 80.9 % (50.0-68.0) H 09/03/18 03:30 Lymph % (Auto) 14.0 % (22.0-35.0) L 09/03/18 03:30 [place] % (Auto) 4.9 % (1.0-6.0) 09/03/18 03:30 Eos % (Auto) 0.0 % (1.5-5.0) L 09/03/18 03:30 Baso % (Auto) 0.2 % (0.0-3.0) 09/03/18 03:30 Lymph # (Auto) 0.9 (1.2-3.4) L 09/03/18 03:30 [place] # (Auto) 0.3 (0.1-0.6) 09/03/18 03:30 Eos # (Auto) 0.0 (0.0-0.7) 09/03/18 03:30 Baso # (Auto) 0.01 K/mm3 (0.0-2.0) 09/03/18 03:30 Absolute Neuts (auto) 4.96 (1.4-6.5) 09/03/18 03:30 pCO2 50 mm/Hg (35-45) H 09/02/18 18:35 pO2 48.0 mm/Hg (80-100) L 09/02/18 18:35 HCO3 29.6 mmol/L (21-28) H 09/02/18 18:35 ABG pH 7.38 (7.35-7.45) 09/02/18 18:35 ABG Total CO2 31.1 mmol.L (22-28) H 09/02/18 18:35 ABG O2 Saturation 87.1 % (95-98) L 09/02/18 18:35 ABG Base Excess 3.4 mmol/L (-2.0-3.0) H 09/02/18 18:35 ABG Potassium 3.6 mmol/L (3.6-5.2) 09/02/18 18:35 Sodium 132.0 mmol/L (132-148) 09/02/18 18:35 Chloride 91.0 mmol/L (98-107) L 09/02/18 18:35 Glucose 599 mg/dl (65-105) H* 09/02/18 18:35 Lactate 1.7 mmol/L (0.7-2.1) 09/02/18 18:35 FiO2 21.0 % 09/02/18 18:35 Crit Value Called To Dr whaley 09/02/18 18:[address] 09/02/18 18:35 Blood Gas Notified Time 18409/02/18 18:35 Sodium 138 mmol/L (132-148) 09/03/18 06:20 Potassium 4.6 mmol/L (3.6-5.0) 09/03/18 06:20 Chloride 95 mmol/L (98-107) L 09/03/18 06:20 Carbon Dioxide 31 mmol/L (21-33) 09/03/18 06:20 Anion Gap 16 (10-20) 09/03/18 06:20 BUN 28 mg/dL (7-21) H 09/03/18 06:20 Creatinine 0.9 mg/dl (0.7-1.2) 09/03/18 06:20 Est GFR ( Amer) > 60 09/03/18 06:20 Est GFR (Non-Af Amer) > 60 09/03/18 06:20 POC Glucose (mg/dL) 400 mg/dL (65-110) H* 09/03/18 16:13 Random Glucose 400 mg/dL (70-110) H* 09/03/18 06:20 Hemoglobin A1c 14.4 % (4.2-6.5) H 09/02/18 15:50 Calcium 9.4 mg/dL (8.4-10.5) 09/03/18 06:20 Phosphorus 3.6 mg/dL (2.5-4.5) 09/03/18 06:20 Magnesium 2.2 mg/dL (1.7-2.2) 09/03/18 06:20 Total Bilirubin 0.3 mg/dL (0.2-1.3) 09/03/18 06:20 AST 54 U/L (14-36) H D 09/03/18 06:20 ALT 65 U/L (7-56) H 09/03/18 06:20 Alkaline Phosphatase 100 U/L (38-126) 09/03/18 06:20 Lactate Dehydrogenase 660 U/L (333-699) 09/02/18 15:50 Total Creatine Kinase 262 U/L (35-230) H 09/02/18 15:50 CK-MB (CK-2) 1.5 ng/mL (0.0-3.6) 09/02/18 15:50 CK-MB (CK-2) % Cancelled 09/02/18 15:50 Troponin I < 0.01 ng/mL 09/02/18 15:50 NT-Pro-B Natriuret Pep 41.8 pg/mL (0-450) 09/02/18 15:50 Total Protein 7.9 g/dL (5.8-8.3) 09/03/18 06:20 Albumin 4.3 g/dL (3.0-4.8) 09/03/18 06:20 Globulin 3.6 gm/dL 09/03/18 06:20 Albumin/Globulin Ratio 1.2 (1.1-1.8) 09/03/18 06:20 Triglycerides 131 mg/dL (35-160) 09/03/18 06:20 Cholesterol 192 mg/dL (130-200) 09/03/18 06:20 LDL Cholesterol Direct 121 mg/dL (0-129) 09/03/18 06:20 HDL Cholesterol 34 mg/dL (29-60) 09/03/18 06:20 Procalcitonin 0.19 NG/ML (0.19-0.49) 09/02/18 20:54 Free T4 1.05 ng/dL (0.78-2.19) 09/03/18 03:30 Thyroxine (T4) 5.9 ug/dL (5.5-11.0) 09/03/18 03:30 Total T3 0.65 ng/mL (0.97-1.69) L 09/02/18 15:50 TSH 3rd Generation 0.78 mIU/mL (0.46-4.68) 09/03/18 03:30 Cortisol AM Sample 7.6 ug/dL (4.46-22.7) 09/03/18 03:30 Arterial Blood Potassium 3.6 mmol/L (3.6-5.2) 09/02/18 18:35 Urine Color Yellow (YELLOW) 09/02/18 21:29 Urine Appearance Clear (CLEAR) 09/02/18 21:29 Urine pH 6.0 (4.7-8.0) 09/02/18 21:29 Ur Specific [place] 1.015 (1.005-1.035) 09/02/18 21:29 Urine Protein Negative mg/dL (<30 mg/dL) 09/02/18 21:29 Urine Glucose (UA) >=1000 mg/dL (NEGATIVE) 09/02/18 21:29 Urine Ketones 15 mg/dL (NEGATIVE) H 09/02/18 21:29 Urine Blood Negative (NEGATIVE) 09/02/18 21: Urine Nitrate Negative (NEGATIVE) 09/02/18 21:29 Urine Bilirubin Negative (NEGATIVE) 09/02/18 21:29 Urine Urobilinogen 0.2 E.U./dL (<1 E.U./dL) 09/02/18 21:29 Ur Leukocyte Esterase Negative Linnea/uL (NEGATIVE) 09/02/18 21:29 Influenza Typ A,B (EIA) Pos for influenza a (NEGATIVE) H 09/02/18 15:50 - Hospital Course Hospital Course: Patient is a 57 year old [place]ese-speaking female with a past medical history of DM-2, HTN, and hypothyroidism presenting with generalized weakness, nausea, and fevers for one week. Full work up, including labs and imaging, in the emergency department showed patient was positive for Infuenza and had blood sugars >500. Patient was recently diagnosed with DM2 2 months ago and was not compliant with medication. Patient was given insulin and fluids. Subsequent lab values showed improvement in blood sugar levels. Patient was also started on Tamiflu. She experienced relief of symptoms the following morning. Patient was given diabetic education including glucometer usage, diet recommendations, and insulin administration. Patient acknowledged and verbalized understanding of instructions given. Patient is to follow up with her primary medical doctor within 1 week. She will resume all home medications as prescribed to her. Patient is to complete full course of Tamiflu. If symptoms worsen, patient instructed to return to the ED. Above is a brief summary, for a detailed encounter please refer to medical records. - Date & Time of H&P Date of H&P: 09/02/18 Time of H&P: 19:02 Discharge Exam - Head Exam Head Exam: ATRAUMATIC, NORMAL INSPECTION, NORMOCEPHALIC - Eye Exam Eye Exam: EOMI - ENT Exam ENT Exam: Mucous Membranes Moist - Respiratory Exam Respiratory Exam: NORMAL BREATHING PATTERN. absent: Accessory Muscle Use, Decreased Breath Sounds, Rales, Rhonchi, Wheezes, Respiratory Distress - Cardiovascular Exam Cardiovascular Exam: REGULAR RHYTHM. absent: Tachycardia - GI/Abdominal Exam GI & Abdominal Exam: Normal Bowel Sounds, Soft. absent: Tenderness - Back Exam Back exam: absent: CVA tenderness (L), CVA tenderness (R) - Neurological Exam Neurological exam: Alert, Oriented x3 - Psychiatric Exam Psychiatric exam: Normal Affect, Normal Mood - Skin Skin Exam: Dry, Intact, Normal Color, Warm Discharge Plan - Discharge Medications Prescriptions: Insulin Detemir [Levemir] 24 unit SC HS 14 Days #336 unit Insulin Lispro [humALOG] 14 units SC AC 14 Days #588 unit Oseltamivir Cap [Tamiflu Cap] 75 mg PO BID 3 Days #6 capsule - Follow Up Plan Condition: GOOD Disposition: HOME/ ROUTINE Instructions: Type 2 Diabetes, Flu, Adult (DC), Diabetic Meal Planning Additional Instructions: Please follow up with your primary care doctor in 1 week. Please resume all home medications. Resume diabetic diet as discussed. Please take new medications as prescribed. If symptoms worsen, please return to the ED. <Kelvin Newman - Last Filed: 09/04/18 14:33> Provider - Provider Date of Admission: 09/02/18 18:45 Attending physician: Kelvin Newman MD Consults: 09/02/18 19:02 Diabetic Education Referral Routine Comment: Physician Instructions: Reason For Exam: Hyperglycemia, diagnosed w/ DM 2 months ago 09/02/18 19:14 Endocrinology Consult Routine Comment: Consulting Provider: Angelia Panchal Consulting Physician: Angelia Panchal Reason for Consult: HHS, new diabetic 09/02/18 21:41 Diabetic Education Referral Routine Comment: DIABETIC TEACHING. NEWLY DIAANOSED. Physician Instructions: Reason For Exam: EVALUATION Inpatient CLIENT CARE SPECIALIST Core Measures Referral Routine Comment: INFLUENZA A, Physician Instructions: Reason For Exam: EVALUATION Transition In Care/Readmission Reduction Routine Comment: Physician Instructions: Reason For Exam: EVALUATION 09/03/18 11:03 Diabetic Education Referral Routine Comment: Physician Instructions: Reason For Exam: insulin naive and glucose checks Hospital Course - Lab Results Lab Results: Micro Results 09/02/18 21:29 Urine,Clean Catch Urine Culture - Preliminary Gram Positive Cocci 09/02/18 16:10 Blood Blood Culture - Preliminary NO GROWTH AFTER 24 HOURS 09/02/18 15:50 Blood Blood Culture - Preliminary NO GROWTH AFTER 24 HOURS Most Recent Lab Values WBC 6.1 10^3/uL (4.5-11.0) 09/03/18 03:30 RBC 5.48 10^6/uL (3.5-6.1) 09/03/18 03:30 Hgb 13.7 g/dL (12.0-16.0) 09/03/18 03:30 Hct 42.6 % (36.0-48.0) 09/03/18 03:30 MCV 77.7 fl (80.0-105.0) L 09/03/18 03:30 MCH 25.0 pg (25.0-35.0) 09/03/18 03:30 MCHC 32.2 g/dl (31.0-37.0) 09/03/18 03:30 RDW 15.2 % (11.5-14.5) H 09/03/18 03:30 Plt Count 167 10^3/uL (120.0-450.0) 09/03/18 03:30 MPV 11.1 fl (7.0-11.0) H 09/03/18 03:30 Neut % (Auto) 80.9 % (50.0-68.0) H 09/03/18 03:30 Lymph % (Auto) 14.0 % (22.0-35.0) L 09/03/18 03:30 [place] % (Auto) 4.9 % (1.0-6.0) 09/03/18 03:30 Eos % (Auto) 0.0 % (1.5-5.0) L 09/03/18 03:30 Baso % (Auto) 0.2 % (0.0-3.0) 09/03/18 03:30 Lymph # (Auto) 0.9 (1.2-3.4) L 09/03/18 03:30 [place] # (Auto) 0.3 (0.1-0.6) 09/03/18 03:30 Eos # (Auto) 0.0 (0.0-0.7) 09/03/18 03:30 Baso # (Auto) 0.01 K/mm3 (0.0-2.0) 09/03/18 03:30 Absolute Neuts (auto) 4.96 (1.4-6.5) 09/03/18 03:30 pCO2 50 mm/Hg (35-45) H 09/02/18 18:35 pO2 48.0 mm/Hg (80-100) L 09/02/18 18:35 HCO3 29.6 mmol/L (21-28) H 09/02/18 18:35 ABG pH 7.38 (7.35-7.45) 09/02/18 18:35 ABG Total CO2 31.1 mmol.L (22-28) H 09/02/18 18:35 ABG O2 Saturation 87.1 % (95-98) L 09/02/18 18:35 ABG Base Excess 3.4 mmol/L (-2.0-3.0) H 09/02/18 18:35 ABG Potassium 3.6 mmol/L (3.6-5.2) 09/02/18 18:35 Sodium 132.0 mmol/L (132-148) 09/02/18 18:35 Chloride 91.0 mmol/L (98-107) L 09/02/18 18:35 Glucose 599 mg/dl (65-105) H* 09/02/18 18:35 Lactate 1.7 mmol/L (0.7-2.1) 09/02/18 18:35 FiO2 21.0 % 09/02/18 18:35 Crit Value Called To Dr whaley 09/02/18 18:[address] 09/02/18 18:35 Blood Gas Notified Time 1841 09/02/18 18:35 Sodium 138 mmol/L (132-148) 09/03/18 06:20 Potassium 4.6 mmol/L (3.6-5.0) 09/03/18 06:20 Chloride 95 mmol/L (98-107) L 09/03/18 06:20 Carbon Dioxide 31 mmol/L (21-33) 09/03/18 06:20 Anion Gap 16 (10-20) 09/03/18 06:20 BUN 28 mg/dL (7-21) H 09/03/18 06:20 Creatinine 0.9 mg/dl (0.7-1.2) 09/03/18 06:20 Est GFR ( Amer) > 60 09/03/18 06:20 Est GFR (Non-Af Amer) > 60 09/03/18 06:20 POC Glucose (mg/dL) 400 mg/dL (65-110) H* 09/03/18 16:13 Random Glucose 400 mg/dL (70-110) H* 09/03/18 06:20 Hemoglobin A1c 14.4 % (4.2-6.5) H 09/02/18 15:50 Calcium 9.4 mg/dL (8.4-10.5) 09/03/18 06:20 Phosphorus 3.6 mg/dL (2.5-4.5) 09/03/18 06:20 Magnesium 2.2 mg/dL (1.7-2.2) 09/03/18 06:20 Total Bilirubin 0.3 mg/dL (0.2-1.3) 09/03/18 06:20 AST 54 U/L (14-36) H D 09/03/18 06:20 ALT 65 U/L (7-56) H 09/03/18 06:20 Alkaline Phosphatase 100 U/L (38-126) 09/03/18 06:20 Lactate Dehydrogenase 660 U/L (333-699) 09/02/18 15:50 Total Creatine Kinase 262 U/L (35-230) H 09/02/18 15:50 CK-MB (CK-2) 1.5 ng/mL (0.0-3.6) 09/02/18 15:50 CK-MB (CK-2) % Cancelled 09/02/18 15:50 Troponin I < 0.01 ng/mL 09/02/18 15:50 NT-Pro-B Natriuret Pep 41.8 pg/mL (0-450) 09/02/18 15:50 Total Protein 7.9 g/dL (5.8-8.3) 09/03/18 06:20 Albumin 4.3 g/dL (3.0-4.8) 09/03/18 06:20 Globulin 3.6 gm/dL 09/03/18 06:20 Albumin/Globulin Ratio 1.2 (1.1-1.8) 09/03/18 06:20 Triglycerides 131 mg/dL (35-160) 09/03/18 06:20 Cholesterol 192 mg/dL (130-200) 09/03/18 06:20 LDL Cholesterol Direct 121 mg/dL (0-129) 09/03/18 06:20 HDL Cholesterol 34 mg/dL (29-60) 09/03/18 06:20 Procalcitonin 0.19 NG/ML (0.19-0.49) 09/02/18 20:54 Free T4 1.05 ng/dL (0.78-2.19) 09/03/18 03:30 Thyroxine (T4) 5.9 ug/dL (5.5-11.0) 09/03/18 03:30 Total T3 0.65 ng/mL (0.97-1.69) L 09/02/18 15:50 TSH 3rd Generation 0.78 mIU/mL (0.46-4.68) 09/03/18 03:30 Cortisol AM Sample 7.6 ug/dL (4.46-22.7) 09/03/18 03:30 Arterial Blood Potassium 3.6 mmol/L (3.6-5.2) 09/02/18 18:35 Urine Color Yellow (YELLOW) 09/02/18 21:29 Urine Appearance Clear (CLEAR) 09/02/18 21:29 Urine pH 6.0 (4.7-8.0) 09/02/18 21:29 Ur Specific [place] 1.015 (1.005-1.035) 09/02/18 21:29 Urine Protein Negative mg/dL (<30 mg/dL) 09/02/18 21:29 Urine Glucose (UA) >=1000 mg/dL (NEGATIVE) 09/02/18 21:29 Urine Ketones 15 mg/dL (NEGATIVE) H 09/02/18 21:29 Urine Blood Negative (NEGATIVE) 09/02/18 21:29 Urine Nitrate Negative (NEGATIVE) 09/02/18 21:29 Urine Bilirubin Negative (NEGATIVE) 09/02/18 21:29 Urine Urobilinogen 0.2 E.U./dL (<1 E.U./dL) 09/02/18 21:29 Ur Leukocyte Esterase Negative [place]nea/uL (NEGATIVE) 09/02/18 21:29 Influenza Typ A,B (EIA) Pos for influenza a (NEGATIVE) H 09/02/18 15:50 Attending/Attestation - Attestation I have personally seen and examined this patient.: Yes I have fully participated in the care of the patient.: Yes I have reviewed all pertinent clinical information, including history, physical exam and plan: Yes Notes (Text): 09/04/18 14:26 Patient was seen and examined with durable medical equipment repairer. 57 year old [place]ese-speaking female with PMH of Obesity, DM-2, HTN, hypothyroidism and non compliance with medication was admitted with Influenza infection and uncontrolled DM due to non compliance with medication. Patient is afebrile, on room air, she is ambulatory, will be discharged home on Tamiflu for total 5 days treatment. Patient has been started on Levemir and bolus humAlog insulin.Blood sugars are better controlled.Patient has been given diabetic education regarding Insulin and diet.She has been advised to check blood sugars three time a day and keep record for PCP. Management plan was discussed in detail with patient. Education was provided. 09/04/18 14:29
[2018-09-03] MEDS ORDERED: Insulin Lispro 1 UNITS/0.01 ML SC SCH (16:30)
[2018-09-03 18:43] VITALS: BP 152/93; PULSE 70; TEMP 97.9; O2SAT 95
[2018-09-03] MEDS ORDERED: Insulin Detemir 100 units/ml Vial (Levemir) SC SCH (22:00)
--- NOTE | 2018-09-04 08:20 | PN ---
DATE: 09/03/2018 ENDO FOLLOWUP NOTE LOCATION: Room 378. SUBJECTIVE: This is a 57-year-old female with recent uncontrolled type 2 insulin-requiring diabetes presenting here with now also being followed closely for metabolic management. She presented here with marked hyperglycemic accelerations and dehydration with . Her chemistries this morning are pending at this time, but noted her overnight glycemic fluctuations otherwise. ASSESSMENT: This is a 57-year-old female with uncontrolled type 2 insulin-requiring diabetes presenting here with hyperosmolar hyperglycemic state and dehydration with prerenal azotemia and is now being followed closely for metabolic management. She also came in with and was given a stat dose of . PLAN OF MANAGEMENT: We will continue the modified basal and bolus insulin regimen to allow for dose equilibration and keep her on the Humalog given as 12 units t.i.d. before meals as ordered. We will also continue the low-dose . We will continue the basal insulin given as Levemir 24 units subcu at bedtime daily as ordered. We will and supplement accordingly as needed. We will also continue the IV hydration . We will follow. Angelia Panchal MD
== END 2018-09-03 18:55 | disposition home or self-care (01) ==
LOC: ED 14:48 → ERH 18:45 → 3RSO 23:02
PROVIDERS: ADMIT Internal Medicine; ATTEND Internal Medicine
DX: E11.00 Type 2 diabetes mellitus with hyperosmolarity without nonketotic hyperglycemic-hyperosmolar coma (NKHHC) (principal); J10.1 Influenza due to other identified influenza virus with other respiratory manifestations; Z79.4 Long term (current) use of insulin; E86.0 Dehydration; E06.3 Autoimmune thyroiditis; E66.01 Morbid (severe) obesity due to excess calories; I10 Essential (primary) hypertension; E78.5 Hyperlipidemia, unspecified; J20.9 Acute bronchitis, unspecified; G47.10 Hypersomnia, unspecified; R53.1 Weakness; Z87.01 Personal history of pneumonia (recurrent); Z91.14 Patient's other noncompliance with medication regimen; Z82.49 Family history of ischemic heart disease and other diseases of the circulatory system
CPT/HCPCS: 36415; 71045; 80053; 80061; 81003; 82533; 82550; 82553; 82803; 82948; 83036; 83615; 83735; 83880; 84100; 84145; 84439; 84443; 84480; 84484; 85025; 87040; 87086; 87181; 87804; 93005; 94640; 94660; 96361; 96372; 96374; 96375; 99285; G0378; J1650; J2930; J7030